=== PATIENT | female | born 1980 | race Caucasian/White ===

== ENCOUNTER 2017-02-24 09:35 | Inpatient (IN) | payer OTHER ==
[2017-02-24] MEDS ORDERED: LR 500 ML IV ONE (09:57)
[2017-02-24] MEDS ORDERED: ceFAZolin 2 GM/DEXTROSE 100 ML IV ONE (09:57)
[2017-02-24] MEDS ORDERED: CITRIC ACID/SODIUM CITRATE 30 ML UDCUP PO ONE (09:57)
[2017-02-24] MEDS ORDERED: LR 1,000 ML IV SCH (10:00)
[2017-02-24] MEDS ORDERED: HYDROCODONE/APAP 5/325 TAB PO PRN (10:19)
[2017-02-24] MEDS ORDERED: LABETALOL HCL 5 MG/ML 20 ML MDV IVP PRN (10:19)
[2017-02-24] MEDS ORDERED: NALOXONE HCL 0.4 MG/ML INJ IVP PRN ×2 (10:19)
[2017-02-24] MEDS ORDERED: ONDANSETRON 4 MG/2 ML VIAL IVP PRN ×2 (10:19)
[2017-02-24] MEDS ORDERED: ENALAPRILAT DIHYDRATE 1.25 MG/ML VIAL IVP PRN (10:19)
[2017-02-24] MEDS ORDERED: MEPERIDINE 25 MG/ML SYR IVP PRN (10:19)
[2017-02-24] MEDS ORDERED: fentaNYL 100 MCG/2 ML INJ IVP PRN (10:19)
[2017-02-24] MEDS ORDERED: OXYCODONE/APAP 5/325 TAB PO PRN (10:19)
--- NOTE | 2017-02-24 10:19 | PREANESOB ---
Obstetric Pre-Anesthesia Info - General Info Proposed Procedure: C/S NPO Start Time: 07:00 (Water only. Solids before MN.) : 3 Para: 0 TAYLOR: 03/18/17 Gestational Age: 36 week(s) and 6 day(s) - Info Status: Premature, [place] Monitors: External FHR Pattern: Reassuring - Labor Status PIH: Moderate Section History: Primary Indications for Current Section: Breech, Other (Specify) (PIH, dropping platelets, rising LFTs.) Labor Epidural: No Anesthesia Allergies/Adverse Reactions: Allergy/AdvReac Type Severity Reaction Status Date / Time Sulfa (Sulfonamide Allergy Verified 09/11/15 15:02 Antibiotics) Home Medications: Medication Instructions Recorded Albuterol Hfa Anes Only [Proair 2 puffs IH QID PRN #1 mdi 04/18/15 Hfa Anes Only] Mesalamine [Lialda] 4 cap PO DAILY 04/18/15 CALCIUM 1,200 mg PO DAILY 02/24/17 Iron 1 tab PO DAILY 02/24/17 1 tab PO DAILY 02/24/17 VITAMIN D 1,000 iunits PO DAILY 02/24/17 Visit Medications: Generic Name Dose Route Start Last Admin Trade Name Freq PRN Reason Stop Dose Admin Cefazolin Sodium/Dextrose 100 mls @ 200 mls/hr 02/24/17 09:57 Ancef 2 Gm (Premix) IV 02/24/17 10:26 ONCALL ONE Protocol Lactated Ringer's 1,000 mls @ 125 mls/hr 02/24/17 10:00 Lr IV 08/23/17 09:59 CONT RASHEED Discontinued Medications Generic Name Dose Route Start Last Admin Trade Name Freq PRN Reason Stop Dose Admin Citric Acid/Sodium Citrate 30 ml 02/24/17 09:57 Bicitra PO 02/24/17 09:58 ONCALL ONE Lactated Ringer's 500 mls @ 0 mls/hr 02/24/17 09:57 Lr IV 02/24/17 09:58 ONCE ONE As Directed - Vital Signs Height/Weight (Nursing): Height 170.18 cm Weight 88.451 kg
[2017-02-24 10:24] LABS: ABSOLUTE NRBC COUNT 0.19 10^3/uL (0-0.01); ADD DIFF? YES; ADD SCAN? NO; ATYPICAL LYMPHOCYTE FLAG 20 (0-99); FRAGMENT RBC FLAG 0 (0-99); HEMATOCRIT 41.8 % (38.0-47.0); HEMOGLOBIN 14.9 g/dL (12.6-16.3); LEFT SHIFT FLG 10 (0-99); LIPEMIA HEMOLYSIS FLAG 90 (0-99); MEAN CELL HEMOGLOBIN CONCENTR. 35.6 g/dL (32.4-36.7); MEAN CELL VOLUME 92.5 fL (81.5-99.8); MEAN PLATELET VOLUME 11.4 fL (8.7-11.7); PLATELET CLUMPS FLAG 0 (0-99); PLATELET COUNT 138 10^3/uL (150-400); RED BLOOD CELL COUNT 4.52 10^6/uL (4.18-5.33); RED CELL DISTRIBUTION WIDTH 14.2 % (11.5-15.2)
[2017-02-24] MEDS ORDERED: fentaNYL 100 MCG/2 ML INJ ONE (10:27)
[2017-02-24] MEDS ORDERED: morphINE PF 5 MG/10 ML INJ ONE (10:28)
[2017-02-24 10:29] LABS: ADD MORPH? NO; NRBC-AUTO% 1.3 % (0.0-0.2)
[2017-02-24] MEDS ORDERED: OXYTOCIN 100 UNITS/10 ML VIAL ONE (10:29)
[2017-02-24 10:52] LABS: ALANINE AMINOTRANSFERASE 138 IU/L (9-52); ASPARTATE AMINOTRANSFERASE 153 IU/L (14-46); BILIRUBIN,TOTAL 0.8 mg/dL (0.1-1.4); BILIRUBIN-CONJUGATED 0.2 mg/dL (0.0-0.5); BILIRUBIN-UNCONJUGATED 0.6 mg/dL (0.0-1.1); GLOMERULAR FILTRATION RATE > 60; LACTATE DEHYDROGENASE 992 IU/L (313-618); URIC ACID 8.1 mg/dL (2.5-6.8)
[2017-02-24] MEDS ORDERED: PHENYLEPHRINE HCL 100 MCG/ML SYR ONE (11:10)
[2017-02-24] MEDS ORDERED: ONDANSETRON 4 MG/2 ML VIAL ONE (11:11)
--- NOTE | 2017-02-24 11:43 | GHP ---
[f rep st] PREOP HISTORY AND PHYSICAL DATE OF ADMISSION: 02/24/2017 HISTORY ON PRESENTATION: Patient is a 36-year-old G3, A2 at 36 weeks and 6 days with an estimated du e date of 03/18/2017, who presents to Labor and Delivery after laboratory values revealed severe pree clampsia. The patient was seen on 02/23 at [facility], at which time she was complaining o f epigastric pain and was advised to check laboratory. Those results revealed elevated liver functio n tests and a uric acid of 7.6. The patient was advised to present to Labor and Delivery. The balaji nt reports that the epigastric pain continued through the night, but feels slightly less today. She denies any headache, known nausea or vomiting. Did report mild right upper quadrant pain yesterday. Has been having peripheral edema for a couple weeks. Patient denies scotomata. She has felt good f etal movement, but reduced this morning. The patient has had a known breech and this was confirmed upon presentation that the baby w as still sitting in a breech presentation. Preparations are being made to proceed with sect ion for delivery. The patient and her are both relieved that the baby is doing fine on heart tone monitoring. The patient and were advised of the risks and benefits of surgery, a nd the consent form signed for primary section. CARE: The patient has been with [facility] since 10 weeks' gestation. The balaji schroeder does have a history of ulcerative colitis and has also seen her GI doctor through the . She had a flare of the colitis prior to getting , and had lingering symptoms through the preg jared. She was advised by the GI doctors to do a course of prednisone to help put her into remission ; however, she declined that. The patient has had mild GI discomfort throughout the . Ther e was a growth ultrasound performed at 32 weeks, at which time the baby was in the 40th percentile of growth, but sitting in the breech presentation. There was an amniotic sheet noted in the lower uter ine quadrant. LABS: Maternal blood type was O positive with negative antibody screen. RPR nonreactive. Rubella immune. Hepatitis B surface antigen negative. HIV negative. Cystic fibrosis negative. SMA negative. Urinalysis and culture were negative. Pap smear normal. Gonorrhea and chlamydia were ne gative. Verifi testing was negative and MSAFP was negative. Baseline hematocrit was 39%, but showed a drop to 35% and the patient has been taking some iron. Admission hematocrit has recovered to 41%. 1-hour Glucola was normal. GBS culture was obtained and was negative. PAST MEDICAL HISTORY: The ulcerative colitis as mentioned above, mild asthma. PAST SURGICAL HISTORY: D and C. PAST OBSTETRIC HISTORY: In August 2015 missed AB with a D and C. In February 2016 an ectopic that was treated with methotrexate. ALLERGIES: To sulfa. MEDICATION: Patient takes Lialda for control of her ulcerative colitis, as well as p.r.n. Bentyl. P atorly takes multivitamins, as well as other supplements and iron. The patient has an albuterol inha ler that she uses p.r.n. ADMISSION HISTORY PHYSICAL: GENERAL: The patient was anxious upon admission until heart tones were obtained. She is not in any acute distress. VITAL SIGNS: The patient is afebrile. Admission blood pressures ranged from 148 to 158 over 90 to 98. See nursing documentation for other vital sig ns. LUNGS: Clear to auscultation bilaterally. CARDIOVASCULAR: Regular rate and rhythm. ABDOMEN: Soft and nontender. There are occasional mild contractions noted on toco monitoring. heart t ones reveal baseline in the 140s with moderate variability and accelerations, category 1 tracing. PE LVIC: Exam is deferred. EXTREMITIES: Show mild edema. No clonus. INITIAL LABS UPON ADMISSION,: White count was 14.7, hemoglobin 14.9, hematocrit 41.8, platelets are 138,000. Creatinine is 1.0, uric acid 8.1, SGOT is 153, SGPT is 138, LDH is 992. ASSESSMENT: Intrauterine at 36 weeks and 6 days with signs of severe preeclampsia, with el evated liver function tests and low platelets. Patient has been having epigastric pain and is having slightly elevated blood pressures. PLAN: Will proceed with section for delivery, as the baby is confirmed to still be in a pool ech presentation. Following this, we will give the patient magnesium sulfate prophylaxis with 4 g of magnesium sulfate bolus, and then 2 g an hour for 24 hours. We will follow labs to see the progress until they start declining. Thanks for this admit. /[id number]/MODL
[2017-02-24 11:49] LABS: BASE EXCESS CORD -2.8 mEq/L (-13.6--3.2); CORD BLOOD PCO2 57.1 mmHg (37-60); PH ARTERIAL CORD BLOOD 7.27 (7.10-7.37)
[2017-02-24 11:53] LABS: PH VENOUS CORD BLOOD 7.34 (7.20-7.42)
[2017-02-24 12:25] LABS: ECHINOCYTES 1+; PLATELET ESTIMATE DECREASED (ADEQ); POLYCHROMASIA 2+
--- NOTE | 2017-02-24 12:29 | POSTANESTH ---
Post Anesthetic Evaluation Cardiovascular Status: Normal, Stable, Similar to Pre-Op Cond Respiratory Status: Normal, Stable, Similar to Pre-op Cond. Level of Consciousness/Mental Status: Can Participate in Eval, Alert and Oriented Pain Control: Adequate, Prn Tx Ordered Nausea/Vomiting Control: Adequate, Prn Tx Ordered Complications Possibly Related to Anesthesia: None Noted
[2017-02-24] MEDS ORDERED: POLYETHYLENE GLYCOL 3350 17 GM PKT PO PRN (12:39)
[2017-02-24] MEDS ORDERED: MAGNESIUM HYDROXIDE 30 ML UDCUP PO PRN (12:39)
[2017-02-24] MEDS ORDERED: ALBUTEROL HFA ANES ONLY 200 PUFFS/8.5 GM MDI IH PRN (12:39)
[2017-02-24] MEDS ORDERED: LACTULOSE 20 GM/30 ML UDCUP PO PRN (12:39)
[2017-02-24] MEDS ORDERED: BISACODYL 10 MG SUPP PR PRN (12:39)
[2017-02-24] MEDS ORDERED: MAGNESIUM SULF 4 GM/WATER 100 ML IV ONE (12:41)
[2017-02-24] MEDS ORDERED: CALCIUM GLUC 10% 1 GM/10 ML VIAL IVP PRN (12:41)
[2017-02-24] MEDS ORDERED: Mag Sulf 500 ML IV SCH (12:45)
--- NOTE | 2017-02-24 13:01 | OBDEL ---
Info Type: Primary Presentation at Delivery: Breech L&D Analgesia/Anesthesia Type: Spinal GBS+: No - Infant Care Provider Host/Hostess/ACCORDION MAKER: Tea Cox - [facility] Course Intrapartum: 02/24/17 13:01 admitted with known increased LFTs and borderline HTN and plans to proceed with C/S for breech 02/24/17 13:02 Magnesium sulfate started after C/S Indications for Delivery: Preeclampsia Severe (Breech) Vaginal Delivery - Labor and Delivery Cord Gases: Cord Gases Cord Blood PCO2 57.1 mmHg (37-60) 02/24/17 11:42 Cord Base Excess -2.8 mEq/L (-13.6--3.2) H 02/24/17 11:42 Cord ABG pH 7.27 (7.10-7.37) 02/24/17 11:42 Cord VBG pH 7.34 (7.20-7.42) 02/24/17 11:42 Operative Report - Delivery Pre-op Diagnoses: IUP at 36w6d, breech, severe preeclampsia Post-op Diagnoses: same History of Prior Section: No Nulliparous Prior to Delivery: Yes Indications for Current Section: Breech, Other (Specify) (PIH, dropping platelets, rising LFTs.) Procedure: Unscheduled, Low Transverse Surgeon: Kathrin Castillo Manager Money: Jessica Henry Anesthesiologist: Keanu Glaser Complications: Nucal Cord (x 2) Findings: normal anatomy, clear fluid upon amniotomy, NCx2 , complete breech, normal delivery up past shoulders and arms swept over chest and delivered, then head delivered with only minimal delay and rotation of head. kept on abd for 1 min delayed cord clamp, stimulated by RN with sterile towel and bulb suctioned. Cord gases obtained. placenta removed with manual extraction - no retained tissue. goyal with clear UOP after procedure Specimen(s)/Path: Placenta IV Fluid (ml): 1,600 EBL: 1000 Cord Gases: Cord Gases Cord Blood PCO2 57.1 mmHg (37-60) 02/24/17 11:42 Cord Base Excess -2.8 mEq/L (-13.6--3.2) H 02/24/17 11:42 Cord ABG pH 7.27 (7.10-7.37) 02/24/17 11:42 Cord VBG pH 7.34 (7.20-7.42) 02/24/17 11:42 Data [place] Delivery Date: 02/24/17 Delivery Time: 11:34 TAYLOR: 03/18/17 Gestational Age: 36 week(s) and 6 day(s) Sex of : Male (Don) Score (1 Min): 8 Score (5 Min): 8 ICD10 Worksheet Patient Problems: Problems Problem Status Onset Breech presentation Acute Severe pre-eclampsia Acute delivery delivered Acute
[2017-02-24] MEDS ORDERED: ALBUTEROL 200 PUFFS/18 GM MDI IH PRN (13:02)
--- NOTE | 2017-02-24 13:26 | OBGCSDC ---
General Delivery Information - General Info : 3 Para: 0 Abortions: 1 Type: Primary L&D Analgesia/Anesthesia Type: Spinal Admission Date: 02/24/17 Labs: Patient ABO/Rh O POSITIVE 02/24/17 09:55 Hct 41.8 % (38.0-47.0) 02/24/17 09:55 - Hospital Course Antepartum: 02/24/17 13:23 h/o UC and lingering GI symptoms after last attack prior to . some pedal swelling for last couple weeks, but epigastric pain began in last couple days. No other preeclamptic symptoms but labs showed elevated LFTs and plts 148k on 02/23. persistent breech position. Intrapartum: 02/24/17 13:01 admitted with known increased LFTs and borderline HTN and plans to proceed with C/S for breech 02/24/17 13:02 Magnesium sulfate started after C/S - Delivery Providers Surgeon: Kathrin Castillo Translator: Jessica Henry Anesthesiologist: Keanu Glaser - Delivery Indications for Current Section: Breech, Other (Specify) (PIH, dropping platelets, rising LFTs.) Surgical Procedures: Unscheduled, Low Transverse Intra-op Complications: Nucal Cord (x 2) EBL: 1000 [place] Data [place] Delivery Date: 02/24/17 Delivery Time: 11:34 TAYLOR: 03/18/17 Gestational Age: 36 week(s) and 6 day(s) Sex of Infant: Male (Don) Score (1 Min): 8 Score (5 Min): 8 Discharge Information - Discharge Information Condition: Good
[2017-02-24] MEDS ORDERED: KETOROLAC 30 MG/1 ML SDV ONE (13:57)
[2017-02-24 16:38] LABS: ABSOLUTE NRBC COUNT 0.16 10^3/uL (0-0.01); ADD DIFF? YES; ADD MORPH? NO; ADD SCAN? NO; ATYPICAL LYMPHOCYTE FLAG 10 (0-99); FRAGMENT RBC FLAG 0 (0-99); HEMATOCRIT 35.8 % (38.0-47.0); HEMOGLOBIN 12.8 g/dL (12.6-16.3); LEFT SHIFT FLG 10 (0-99); LIPEMIA HEMOLYSIS FLAG 90 (0-99); MEAN CELL HEMOGLOBIN 33.3 pg (27.9-34.1); MEAN CELL HEMOGLOBIN CONCENTR. 35.8 g/dL (32.4-36.7); MEAN CELL VOLUME 93.2 fL (81.5-99.8); MEAN PLATELET VOLUME 11.2 fL (8.7-11.7); NRBC-AUTO% 0.8 % (0.0-0.2); PLATELET CLUMPS FLAG 0 (0-99); PLATELET COUNT 121 10^3/uL (150-400); RED BLOOD CELL COUNT 3.84 10^6/uL (4.18-5.33); RED CELL DISTRIBUTION WIDTH 14.2 % (11.5-15.2)
[2017-02-24 17:05] LABS: ALANINE AMINOTRANSFERASE 99 IU/L (9-52); ASPARTATE AMINOTRANSFERASE 111 IU/L (14-46); BILIRUBIN,TOTAL 0.5 mg/dL (0.1-1.4); BILIRUBIN-CONJUGATED 0.1 mg/dL (0.0-0.5); BILIRUBIN-UNCONJUGATED 0.4 mg/dL (0.0-1.1); CREATININE 0.9 mg/dL (0.6-1.0); GLOMERULAR FILTRATION RATE > 60; LACTATE DEHYDROGENASE 1055 IU/L (313-618); URIC ACID 7.5 mg/dL (2.5-6.8)
[2017-02-24 17:09] LABS: PLATELET ESTIMATE ADEQUATE (ADEQ)
[2017-02-24] MEDS ORDERED: KETOROLAC 30 MG/1 ML SDV IVP SCH (18:00)
[2017-02-24] MEDS: KETOROLAC 30 MG/1 ML SDV IVP SCH (20:05)
--- NOTE | 2017-02-24 21:25 | OBPP ---
Progress Note Assessment/Plan: Assessment: POD 1/2 s/p primary C/S for breech and severe preeclampsia LFTs were trending down on last check plts had slight add'n drop B/P stable and tolerating Mg UOP adequate Plan: Cont Mg x 24 hrs recheck PIH labs at 0600 02/24/17 21:21 Subjective/ Course: 02/24/17 21:23 Pt doing well. Doe Mg very well - no nausea and doe diet. Hot but using fan, only mild itching. Baby has latched on. Pain is well controlled with Duramorph and Toradol. Reassured pt that last labs were trending down. Objective: 02/24/17 16:25 02/24/17 16:25 Patient ABO/Rh O POSITIVE 02/24/17 09:55 Uric Acid 7.5 mg/dL (2.5-6.8) H 02/24/17 16:25 Total Bilirubin 0.5 mg/dL (0.1-1.4) 02/24/17 16:25 Conjugated Bilirubin 0.1 mg/dL (0.0-0.5) 02/24/17 16:25 Unconjugated Bilirubin 0.4 mg/dL (0.0-1.1) 02/24/17 16:25 AST 111 IU/L (14-46) H 02/24/17 16:25 ALT 99 IU/L (9-52) H 02/24/17 16:25 Lactate Dehydrogenase 1055 IU/L (313-618) H 02/24/17 16:25 Uterine Position/Fundal Height: Umbilicus -1 Uterine Tone: Firm Physical Exam - Physical Exam Abdomen: non-tender (approp post op tenderness), soft, dressing (CDI) Extremities: non-tender, pedal edema (mild) Skin: normal color, warm/dry Neuro/Psych: alert, normal mood/affect
[2017-02-25] MEDS: KETOROLAC 30 MG/1 ML SDV IVP SCH ×3 (02:04→12:52)
[2017-02-25 06:25] LABS: ABSOLUTE NRBC COUNT 0.09 10^3/uL (0-0.01); ADD DIFF? YES; ADD MORPH? NO; ADD SCAN? NO; ALANINE AMINOTRANSFERASE 87 IU/L (9-52); ASPARTATE AMINOTRANSFERASE 82 IU/L (14-46); ATYPICAL LYMPHOCYTE FLAG 10 (0-99); FRAGMENT RBC FLAG 0 (0-99); GLOMERULAR FILTRATION RATE > 60; HEMATOCRIT 33.1 % (38.0-47.0); HEMOGLOBIN 11.5 g/dL (12.6-16.3); LACTATE DEHYDROGENASE 889 IU/L (313-618); LEFT SHIFT FLG 10 (0-99); LIPEMIA HEMOLYSIS FLAG 90 (0-99); MEAN CELL HEMOGLOBIN CONCENTR. 34.7 g/dL (32.4-36.7); MEAN CELL VOLUME 95.1 fL (81.5-99.8); MEAN PLATELET VOLUME 11.2 fL (8.7-11.7); NRBC-AUTO% 0.5 % (0.0-0.2); PLATELET CLUMPS FLAG 0 (0-99); PLATELET COUNT 143 10^3/uL (150-400); RED BLOOD CELL COUNT 3.48 10^6/uL (4.18-5.33); RED CELL DISTRIBUTION WIDTH 14.5 % (11.5-15.2); URIC ACID 7.7 mg/dL (2.5-6.8)
[2017-02-25 07:45] LABS: PLATELET ESTIMATE DECREASED (ADEQ)
[2017-02-25 07:47] LABS: LARGE PLATELETS PRESENT; POLYCHROMASIA 1+
[2017-02-25] MEDS: IBUPROFEN 600 MG TAB PO PRN ×2 (14:17→20:13)
[2017-02-25] MEDS: SENNOSIDES/DOCUSATE SODIUM TAB PO SCH (14:22)
[2017-02-25] MEDS: HYDROCODONE/APAP 5/325 TAB PO PRN ×3 (15:00→23:28)
[2017-02-25] MEDS ORDERED: SIMETHICONE 80 MG TAB CHEW PO PRN (17:36)
[2017-02-26] MEDS: IBUPROFEN 600 MG TAB PO PRN ×4 (03:03→23:10)
[2017-02-26] MEDS: SENNOSIDES/DOCUSATE SODIUM TAB PO SCH ×3 (04:21→19:21)
[2017-02-26 06:04] LABS: ABSOLUTE NRBC COUNT 0.04 10^3/uL (0-0.01); ADD DIFF? YES; ADD MORPH? NO; ADD SCAN? NO; ATYPICAL LYMPHOCYTE FLAG 10 (0-99); FRAGMENT RBC FLAG 0 (0-99); HEMATOCRIT 33.6 % (38.0-47.0); HEMOGLOBIN 11.5 g/dL (12.6-16.3); LEFT SHIFT FLG 10 (0-99); LIPEMIA HEMOLYSIS FLAG 90 (0-99); MEAN CELL HEMOGLOBIN 32.7 pg (27.9-34.1); MEAN CELL HEMOGLOBIN CONCENTR. 34.2 g/dL (32.4-36.7); MEAN CELL VOLUME 95.5 fL (81.5-99.8); MEAN PLATELET VOLUME 10.9 fL (8.7-11.7); NRBC-AUTO% 0.2 % (0.0-0.2); PLATELET CLUMPS FLAG 0 (0-99); PLATELET COUNT 216 10^3/uL (150-400); RED BLOOD CELL COUNT 3.52 10^6/uL (4.18-5.33); RED CELL DISTRIBUTION WIDTH 14.6 % (11.5-15.2)
[2017-02-26 06:11] LABS: ALANINE AMINOTRANSFERASE 70 IU/L (9-52); ASPARTATE AMINOTRANSFERASE 57 IU/L (14-46); BILIRUBIN,TOTAL 0.2 mg/dL (0.1-1.4); BILIRUBIN-UNCONJUGATED 0.2 mg/dL (0.0-1.1); CREATININE 0.9 mg/dL (0.6-1.0); GLOMERULAR FILTRATION RATE > 60; LACTATE DEHYDROGENASE 946 IU/L (313-618); URIC ACID 6.9 mg/dL (2.5-6.8)
[2017-02-26 07:30] LABS: ACANTHOCYTES 1+; PLATELET ESTIMATE ADEQUATE (ADEQ); POLYCHROMASIA 1+; TOXIC GRANULATION PRESENT
[2017-02-26] MEDS: HYDROCODONE/APAP 5/325 TAB PO PRN ×4 (08:43→20:01)
--- NOTE | 2017-02-26 11:17 | OBPP ---
Progress Note Assessment/Plan: Assessment: [id number] s/p primary c/s (breech) Severe Pre Eclampsia, labs improving POD#2 anemia Plan: routine post op care ambulate today cont monitoring BP's support plan to d/c home 24-48hours pending normal BPs and improved labs 02/26/17 11:18 02/26/17 11:19 Subjective/ Course: 02/24/17 21:23 Pt doing well. Doe Mg very well - no nausea and doe diet. Hot but using fan, only mild itching. Baby has latched on. Pain is well controlled with Duramorph and Toradol. Reassured pt that last labs were trending down. 02/26/17 11:16 Pt doing well, she reports min pain. State she feels much better (being off Mag sulfate). She is without difficulty. She reports min bleeding. She is voiding without difficulty. She has no had BM yet, but passing gas. She is ambulating well, plans to walk more today. family @ [place], supportive. She denies any headaches, visual changes, epigastric pain. Objective: 02/26/17 05:45 02/26/17 05:45 Patient ABO/Rh O POSITIVE 02/24/17 09:55 Uric Acid 6.9 mg/dL (2.5-6.8) H 02/26/17 05:45 Total Bilirubin 0.2 mg/dL (0.1-1.4) D 02/26/17 05:45 Conjugated Bilirubin 0.0 mg/dL (0.0-0.5) 02/26/17 05:45 Unconjugated Bilirubin 0.2 mg/dL (0.0-1.1) 02/26/17 05:45 AST 57 IU/L (14-46) H 02/26/17 05:45 ALT 70 IU/L (9-52) H 02/26/17 05:45 Lactate Dehydrogenase 946 IU/L (313-618) H 02/26/17 05:45 Temp Pulse Resp BP Pulse Ox 36.2 C 90 14 136/95 H 97 02/26/17 08:00 02/26/17 08:00 02/26/17 08:00 02/26/17 09:46 02/26/17 08:00 Uterine Position/Fundal Height: At Umbilicus, Midline Uterine Tone: Firm Physical Exam - Physical Exam Respiratory: lungs clear, normal breath sounds Cardiac/Chest: regular rate, rhythm Abdomen: normal bowel sounds, non-tender, soft, incision (c/d/i, no erythema) Extremities: non-tender, swelling (trace) Skin: normal color, warm/dry Neuro/Psych: no motor/sensory deficits, alert, normal mood/affect, oriented x 3
[2017-02-26] MEDS: MESALAMINE PO SCH (19:48)
[2017-02-27] MEDS: IBUPROFEN 600 MG TAB PO PRN ×3 (05:36→18:15)
[2017-02-27] MEDS: HYDROCODONE/APAP 5/325 TAB PO PRN ×4 (05:37→21:20)
[2017-02-27] MEDS: LABETALOL HCL 100 MG TAB PO SCH (12:00)
[2017-02-27] MEDS: MESALAMINE PO SCH (14:45)
[2017-02-27] MEDS: SENNOSIDES/DOCUSATE SODIUM TAB PO SCH ×2 (14:45→21:33)
--- NOTE | 2017-02-27 15:21 | OBPP ---
Progress Note Assessment/Plan: Assessment: 36-year-old POD#3 s/p 1CD for breech and Severe PreEclampsia/HELLP syndrome (delivered on 02/24/17). Doing well. Asymptomatic. Elevated BPs today (> 160s/>100s). Plan: 1. Routine post-/postoperative care. 2. Elevated BPs, repeat labs in AM, start Labetalol 100 PO BID. 3. ABD Binder ordered to support mom during ambulation and normal daily activities (at hosp and home). 4. Plan to DC home tomorrow. 02/27/17 15:17 Subjective/ Course: 02/24/17 21:23 Pt doing well. Doe Mg very well - no nausea and doe diet. Hot but using fan, only mild itching. Baby has latched on. Pain is well controlled with Duramorph and Toradol. Reassured pt that last labs were trending down. 02/26/17 11:16 Pt doing well, she reports min pain. State she feels much better (being off Mag sulfate). She is without difficulty. She reports min bleeding. She is voiding without difficulty. She has no had BM yet, but passing gas. She is ambulating well, plans to walk more today. family @ BS, supportive. She denies any headaches, visual changes, epigastric pain. 02/27/17 15:21 Patient reports good ambulation; showered today. Passing flatus. . Denies significant vaginal bleeding. Denies PreE symptoms. States swelling in feet has decreased since delivery. Objective: 02/26/17 05:45 02/26/17 05:45 Patient ABO/Rh O POSITIVE 02/24/17 09:55 Uric Acid 6.9 mg/dL (2.5-6.8) H 02/26/17 05:45 Total Bilirubin 0.2 mg/dL (0.1-1.4) D 02/26/17 05:45 Conjugated Bilirubin 0.0 mg/dL (0.0-0.5) 02/26/17 05:45 Unconjugated Bilirubin 0.2 mg/dL (0.0-1.1) 02/26/17 05:45 AST 57 IU/L (14-46) H 02/26/17 05:45 ALT 70 IU/L (9-52) H 02/26/17 05:45 Lactate Dehydrogenase 946 IU/L (313-618) H 02/26/17 05:45 Temp Pulse Resp BP Pulse Ox 36.7 C 89 16 154/99 H 95 02/27/17 07:35 02/27/17 12:00 02/27/17 07:35 02/27/17 12:00 02/27/17 07:35 Uterine Position/Fundal Height: Umbilicus -1 Uterine Tone: Firm Physical Exam - Physical Exam Neck: supple Respiratory: lungs clear, normal breath sounds Cardiac/Chest: normal peripheral pulses, regular rate, rhythm Abdomen: normal bowel sounds, soft, other (appropraitely tender; incsion is clean dry and intact) Extremities: non-tender, normal inspection DTR- Lower Extremities: Knee (R): 1+, Knee (L): 1+ Skin: normal color, warm/dry Neuro/Psych: no motor/sensory deficits, alert, normal mood/affect, oriented x 3
[2017-02-28] MEDS: IBUPROFEN 600 MG TAB PO PRN ×4 (00:32→18:39)
[2017-02-28] MEDS: LABETALOL HCL 100 MG TAB PO SCH ×3 (00:37→20:50)
[2017-02-28] MEDS: MESALAMINE PO SCH ×2 (00:38→10:20)
[2017-02-28] MEDS: HYDROCODONE/APAP 5/325 TAB PO PRN ×4 (05:43→20:50)
[2017-02-28 06:02] LABS: ABSOLUTE IMMATURE GRANULOCYTES 0.23 10^3/uL (0.00-0.10); ADD DIFF? NO; ADD MORPH? NO; ADD SCAN? NO; ATYPICAL LYMPHOCYTE FLAG 20 (0-99); FRAGMENT RBC FLAG 0 (0-99); HEMATOCRIT 38.1 % (38.0-47.0); HEMOGLOBIN 13.4 g/dL (12.6-16.3); LEFT SHIFT FLG 10 (0-99); LIPEMIA HEMOLYSIS FLAG 90 (0-99); MEAN CELL HEMOGLOBIN 33.3 pg (27.9-34.1); MEAN CELL HEMOGLOBIN CONCENTR. 35.2 g/dL (32.4-36.7); MEAN CELL VOLUME 94.8 fL (81.5-99.8); PLATELET CLUMPS FLAG 0 (0-99); PLATELET COUNT 441 10^3/uL (150-400); RED BLOOD CELL COUNT 4.02 10^6/uL (4.18-5.33); RED CELL DISTRIBUTION WIDTH 14.3 % (11.5-15.2)
--- NOTE | 2017-02-28 10:11 | OBPP ---
Progress Note Assessment/Plan: Assessment:nipples intact well pain well managed ff@u incision well approximated ss in place no tenderness no redness no ss of infection voiding without difficulty BP elevated when out of bd and up and moving 160/102 after ambulating in the room consult dr. lucia kumar on poc denies pih symptoms Plan:increase labetolol to 200mg po bid/ discharge to home with instructions tomorrow 02/28/17 10:08 Subjective/ Course: 02/24/17 21:23 Pt doing well. Doe Mg very well - no nausea and doe diet. Hot but using fan, only mild itching. Baby has latched on. Pain is well controlled with Duramorph and Toradol. Reassured pt that last labs were trending down. 02/26/17 11:16 Pt doing well, she reports min pain. State she feels much better (being off Mag sulfate). She is without difficulty. She reports min bleeding. She is voiding without difficulty. She has no had BM yet, but passing gas. She is ambulating well, plans to walk more today. family @ [place], supportive. She denies any headaches, visual changes, epigastric pain. 02/27/17 15:21 Patient reports good ambulation; showered today. Passing flatus. . Denies significant vaginal bleeding. Denies PreE symptoms. States swelling in feet has decreased since delivery. 02/28/17 10:07 Patient states doing well feeling good. Denies PIH symptoms. without difficulty. Mobile in the room. Pain well managed. Objective: 02/28/17 05:50 02/26/17 05:45 Patient ABO/Rh O POSITIVE 02/24/17 09:55 Uric Acid 6.9 mg/dL (2.5-6.8) H 02/26/17 05:45 Total Bilirubin 0.2 mg/dL (0.1-1.4) D 02/26/17 05:45 Conjugated Bilirubin 0.0 mg/dL (0.0-0.5) 02/26/17 05:45 Unconjugated Bilirubin 0.2 mg/dL (0.0-1.1) 02/26/17 05:45 AST 57 IU/L (14-46) H 02/26/17 05:45 ALT 70 IU/L (9-52) H 02/26/17 05:45 Lactate Dehydrogenase 946 IU/L (313-618) H 02/26/17 05:45 Temp Pulse Resp BP Pulse Ox 36.6 C 87 18 151/98 H 96 02/28/17 06:08 02/28/17 06:08 02/28/17 06:08 02/28/17 06:08 02/28/17 06:08 Uterine Position/Fundal Height: At Umbilicus Uterine Tone: Firm Physical Exam - Physical Exam General Appearance: WD/WN, alert, no apparent distress Respiratory: chest non-tender, lungs clear, normal breath sounds Cardiac/Chest: regular rate, rhythm Abdomen: normal bowel sounds Extremities: normal range of motion, Marisela's sign (negative bilaterally) DTR- Lower Extremities: Knee (R): 2+, Knee (L): 2+ (no clonus bilaterally) Skin: normal color, warm/dry Neuro/Psych: no motor/sensory deficits, alert, normal mood/affect, oriented x 3
[2017-02-28] MEDS ORDERED: LABETALOL HCL 100 MG TAB PO ONE (11:00)
[2017-02-28 11:06] LABS: % IMMATURE GRANULYOCYTES 1.4 % (0.0-1.1); ABSOLUTE IMMATURE GRANULOCYTES 0.19 10^3/uL (0.00-0.10); ADD DIFF? NO; ADD MORPH? NO; ADD SCAN? NO; ATYPICAL LYMPHOCYTE FLAG 10 (0-99); FRAGMENT RBC FLAG 0 (0-99); HEMATOCRIT 36.8 % (38.0-47.0); HEMOGLOBIN 12.6 g/dL (12.6-16.3); LEFT SHIFT FLG 10 (0-99); LIPEMIA HEMOLYSIS FLAG 90 (0-99); MEAN CELL HEMOGLOBIN 32.8 pg (27.9-34.1); MEAN CELL HEMOGLOBIN CONCENTR. 34.2 g/dL (32.4-36.7); MEAN CELL VOLUME 95.8 fL (81.5-99.8); MEAN PLATELET VOLUME 10.1 fL (8.7-11.7); PLATELET CLUMPS FLAG 0 (0-99); PLATELET COUNT 451 10^3/uL (150-400); RED BLOOD CELL COUNT 3.84 10^6/uL (4.18-5.33); RED CELL DISTRIBUTION WIDTH 14.5 % (11.5-15.2)
[2017-02-28] MEDS: SENNOSIDES/DOCUSATE SODIUM TAB PO SCH ×2 (11:14→22:43)
[2017-02-28 11:34] LABS: ALANINE AMINOTRANSFERASE 82 IU/L (9-52); ASPARTATE AMINOTRANSFERASE 75 IU/L (14-46); BILIRUBIN,TOTAL 0.4 mg/dL (0.1-1.4); BILIRUBIN-CONJUGATED 0.1 mg/dL (0.0-0.5); BILIRUBIN-UNCONJUGATED 0.3 mg/dL (0.0-1.1); CREATININE 0.8 mg/dL (0.6-1.0); GLOMERULAR FILTRATION RATE > 60; LACTATE DEHYDROGENASE 881 IU/L (313-618); URIC ACID 5.6 mg/dL (2.5-6.8)
[2017-02-28 18:33] LABS: % IMMATURE GRANULYOCYTES 1.7 % (0.0-1.1); ABSOLUTE IMMATURE GRANULOCYTES 0.18 10^3/uL (0.00-0.10); ADD DIFF? NO; ADD MORPH? NO; ADD SCAN? NO; ATYPICAL LYMPHOCYTE FLAG 20 (0-99); FRAGMENT RBC FLAG 0 (0-99); HEMATOCRIT 36.7 % (38.0-47.0); HEMOGLOBIN 12.8 g/dL (12.6-16.3); LEFT SHIFT FLG 10 (0-99); LIPEMIA HEMOLYSIS FLAG 90 (0-99); MEAN CELL HEMOGLOBIN 33.1 pg (27.9-34.1); MEAN CELL HEMOGLOBIN CONCENTR. 34.9 g/dL (32.4-36.7); MEAN CELL VOLUME 94.8 fL (81.5-99.8); MEAN PLATELET VOLUME 9.7 fL (8.7-11.7); PLATELET CLUMPS FLAG 10 (0-99); PLATELET COUNT 478 10^3/uL (150-400); RED BLOOD CELL COUNT 3.87 10^6/uL (4.18-5.33); RED CELL DISTRIBUTION WIDTH 14.2 % (11.5-15.2)
[2017-02-28 18:45] LABS: ALANINE AMINOTRANSFERASE 77 IU/L (9-52); ASPARTATE AMINOTRANSFERASE 74 IU/L (14-46); CREATININE 0.8 mg/dL (0.6-1.0); GLOMERULAR FILTRATION RATE > 60; LACTATE DEHYDROGENASE 693 IU/L (313-618)
[2017-03-01] MEDS: HYDROCODONE/APAP 5/325 TAB PO PRN ×3 (01:01→11:33)
[2017-03-01] MEDS: IBUPROFEN 600 MG TAB PO PRN ×2 (01:02→08:44)
[2017-03-01 06:10] LABS: ABSOLUTE IMMATURE GRANULOCYTES 0.23 10^3/uL (0.00-0.10); ADD DIFF? NO; ADD MORPH? NO; ADD SCAN? NO; ATYPICAL LYMPHOCYTE FLAG 10 (0-99); FRAGMENT RBC FLAG 0 (0-99); HEMATOCRIT 36.2 % (38.0-47.0); HEMOGLOBIN 12.6 g/dL (12.6-16.3); LEFT SHIFT FLG 10 (0-99); LIPEMIA HEMOLYSIS FLAG 90 (0-99); MEAN CELL HEMOGLOBIN CONCENTR. 34.8 g/dL (32.4-36.7); MEAN CELL VOLUME 94.8 fL (81.5-99.8); MEAN PLATELET VOLUME 9.7 fL (8.7-11.7); PLATELET CLUMPS FLAG 0 (0-99); PLATELET COUNT 525 10^3/uL (150-400); RED BLOOD CELL COUNT 3.82 10^6/uL (4.18-5.33); RED CELL DISTRIBUTION WIDTH 14.2 % (11.5-15.2)
[2017-03-01 06:32] LABS: ALANINE AMINOTRANSFERASE 79 IU/L (9-52); ASPARTATE AMINOTRANSFERASE 72 IU/L (14-46); BILIRUBIN,TOTAL 0.4 mg/dL (0.1-1.4); BILIRUBIN-CONJUGATED 0.1 mg/dL (0.0-0.5); BILIRUBIN-UNCONJUGATED 0.3 mg/dL (0.0-1.1); CREATININE 0.9 mg/dL (0.6-1.0); GLOMERULAR FILTRATION RATE > 60; LACTATE DEHYDROGENASE 851 IU/L (313-618); URIC ACID 5.9 mg/dL (2.5-6.8)
--- NOTE | 2017-03-01 07:57 | OBPP ---
Progress Note Assessment/Plan: Assessment: 36-year-old POD#3 s/p 1CD for breech and Severe PreEclampsia/HELLP syndrome (delivered on 02/24/17). Doing well. Asymptomatic. Elevated BPs today (> 160s/>100s). Plan: 1. Routine post-/postoperative care. 2. Elevated BPs, repeat labs in AM, start Labetalol 100 PO BID. 3. ABD Binder ordered to support mom during ambulation and normal daily activities (at hosp and home). 4. Plan to DC home tomorrow. 02/27/17 15:17 03/01/17 07:53 A/P: 36-year-old POD#5 s/p 1CD for breech and Severe PreEclampsia/HELLP syndrome (delivered on 02/24/17). Doing well. Asymptomatic. Elevated BPs today (> 160s/>100s). LFTs are trending down and platelets are increasing. 1. Routine post-/postoperative care. 2. Elevated BPs: Reviewed symptoms (asymptomatic), repeat labs reviewed ( improving), continued Labetalol (increased dose) 200 BID at DC. 3. ABD Binder ordered to support mom during ambulation and normal daily activities (at hosp and home). 4. Plan to DC home today. Subjective/ Course: 02/24/17 21:23 Pt doing well. Doe Mg very well - no nausea and doe diet. Hot but using fan, only mild itching. Baby has latched on. Pain is well controlled with Duramorph and Toradol. Reassured pt that last labs were trending down. 02/26/17 11:16 Pt doing well, she reports min pain. State she feels much better (being off Mag sulfate). She is without difficulty. She reports min bleeding. She is voiding without difficulty. She has no had BM yet, but passing gas. She is ambulating well, plans to walk more today. family @ [place], supportive. She denies any headaches, visual changes, epigastric pain. 02/27/17 15:21 Patient reports good ambulation; showered today. Passing flatus. . Denies significant vaginal bleeding. Denies PreE symptoms. States swelling in feet has decreased since delivery. 02/28/17 10:07 Patient states doing well feeling good. Denies PIH symptoms. without difficulty. Mobile in the room. Pain well managed. 03/01/17 07:55 Patient reported mild intermittent headache, with characteristics of tension headache. She reports that she thinks it may be due to lack of sleep. She denies vision changes, significant swelling/edema or right upper quadrant pain. Patient is passing flatus and reports no problems with BM or voiding. She reports that incisional pain is covered with PO [place]. She desires DC home today if possible. She has blood pressure cuff at home. 03/01/17 07:58 Objective: 03/01/17 05:50 03/01/17 05:50 Patient ABO/Rh O POSITIVE 02/24/17 09:55 Uric Acid 5.9 mg/dL (2.5-6.8) 03/01/17 05:50 Total Bilirubin 0.4 mg/dL (0.1-1.4) 03/01/17 05:50 Conjugated Bilirubin 0.1 mg/dL (0.0-0.5) 03/01/17 05:50 Unconjugated Bilirubin 0.3 mg/dL (0.0-1.1) 03/01/17 05:50 AST 72 IU/L (14-46) H 03/01/17 05:50 ALT 79 IU/L (9-52) H 03/01/17 05:50 Lactate Dehydrogenase 851 IU/L (313-618) H 03/01/17 05:50 Temp Pulse Resp BP Pulse Ox 36.5 C 88 18 157/94 H 96 03/01/17 06:00 03/01/17 06:00 03/01/17 06:00 03/01/17 06:00 03/01/17 06:00 Uterine Position/Fundal Height: Umbilicus -2 Uterine Tone: Firm Physical Exam - Physical Exam EENT: PERRL/EOMI, normal ENT inspection Neck: supple, normal inspection Respiratory: lungs clear, normal breath sounds Cardiac/Chest: regular rate, rhythm Abdomen: normal bowel sounds, non-tender, soft, flatus Extremities: normal range of motion, non-tender, normal inspection DTR- Lower Extremities: Knee (R): 1+, Knee (L): 1+ Skin: normal color, warm/dry Neuro/Psych: no motor/sensory deficits, alert, normal mood/affect, oriented x 3
--- NOTE | 2017-03-01 07:59 | OBGCSDC ---
General Delivery Information - General Info : 3 Para: 1 Abortions: 1 Type: Primary L&D Analgesia/Anesthesia Type: Spinal Admission Date: 02/24/17 Labs: Patient ABO/Rh O POSITIVE 02/24/17 09:55 Hct 36.2 % (38.0-47.0) L 03/01/17 05:50 - Hospital Course Antepartum: 02/24/17 13:23 h/o UC and lingering GI symptoms after last attack prior to . some pedal swelling for last couple weeks, but epigastric pain began in last couple days. No other preeclamptic symptoms but labs showed elevated LFTs and plts 148k on 02/23. persistent breech position. Intrapartum: 02/24/17 13:01 admitted with known increased LFTs and borderline HTN and plans to proceed with C/S for breech 02/24/17 13:02 Magnesium sulfate started after C/S : 02/24/17 21:23 Pt doing well. Joselyn Mg very well - no nausea and joselyn diet. Hot but using fan, only mild itching. Baby has latched on. Pain is well controlled with Duramorph and Toradol. Reassured pt that last labs were trending down. 02/26/17 11:16 Pt doing well, she reports min pain. State she feels much better (being off Mag sulfate). She is without difficulty. She reports min bleeding. She is voiding without difficulty. She has no had BM yet, but passing gas. She is ambulating well, plans to walk more today. family @ [facility], supportive. She denies any headaches, visual changes, epigastric pain. 02/27/17 15:21 Patient reports good ambulation; showered today. Passing flatus. . Denies significant vaginal bleeding. Denies PreE symptoms. States swelling in feet has decreased since delivery. 02/28/17 10:07 Patient states doing well feeling good. Denies PIH symptoms. without difficulty. Mobile in the room. Pain well managed. 03/01/17 07:55 Patient reported mild intermittent headache, with characteristics of tension headache. She reports that she thinks it may be due to lack of sleep. She denies vision changes, significant swelling/edema or right upper quadrant pain. Patient is passing flatus and reports no problems with BM or voiding. She reports that incisional pain is covered with PO [place]. She desires DC home today if possible. She has blood pressure cuff at home. 03/01/17 07:58 - Delivery Providers Surgeon: Kathrin Castillo [employer] Coordinator: Jessica Henry Anesthesiologist: Keanu Glaser - Delivery Indications for Current Section: Breech, Other (Specify) (PIH, dropping platelets, rising LFTs.) Surgical Procedures: Unscheduled, Low Transverse Intra-op Complications: Nucal Cord (x 2) EBL: 1000 Data [place] Delivery Date: 02/24/17 Delivery Time: 11:34 TAYLOR: 03/18/17 Gestational Age: 37 week(s) and 4 day(s) Sex of : Male Weight (gm): 2876 g Score (1 Min): 8 Score (5 Min): 8 Discharge Information - Discharge Information Condition: Good Instruction/Follow Up: One Week (BP and incision check.)
[2017-03-01] MEDS: LABETALOL HCL 100 MG TAB PO SCH (09:13)
[2017-03-01 09:14] VITALS: BP 136/92; PULSE 90
[2017-03-01] MEDS: MESALAMINE PO SCH (09:14)
[2017-03-01 09:38] VITALS: RESP 18; TEMP 97.7; O2SAT 94
== END 2017-03-01 13:53 | disposition home or self-care (01) | DRG 765 ==
LOC: FLD 09:35 → FOB 02-25 20:49
PROVIDERS: ADMIT Obstetrics & Gynecology; ATTEND Obstetrics & Gynecology
PROC: 10D00Z1 Extraction of Products of Conception, Low, Open Approach (ICD-10-PCS; principal; 2017-02-24)
DX: O14.23 HELLP syndrome (HELLP), third trimester (principal); O32.1XX0 Maternal care for breech presentation, not applicable or unspecified; K51.90 Ulcerative colitis, unspecified, without complications; O99.613 Diseases of the digestive system complicating pregnancy, third trimester; O90.81 Anemia of the puerperium; O99.513 Diseases of the respiratory system complicating pregnancy, third trimester; J45.909 Unspecified asthma, uncomplicated; Z3A.36 36 weeks gestation of pregnancy; Z37.0 Single live birth
CPT/HCPCS: J0610; J0690; J1885; J2274; J2370; J2405; J2590; J3010; J3475